=== PATIENT | male | born 1930 | race African-American/Black ===

== ENCOUNTER 2017-08-27 14:38 | Inpatient (IN) | payer OTHER ==
[~2017-08-27] VITALS: Ht 180.3 cm; Wt 81.6 kg
[~2017-08-27 14:38] MED LIST: ASPI-986 PO; CLOT10TR2 MM; COLC0.6T66 PO; DOCU240C26 PO; RIVA1TAB PO
[2017-08-27] MEDS ORDERED: SODIUM CHLORIDE 0.9% 500 ML IV ONE (16:00)
[2017-08-27 16:34] LABS: BASOPHILS % 0.9 % (0.0-2.0); EOSINOPHILS % 1.6 % (0.0-5.0); HEMATOCRIT. 36.5 % (42.0-52.0); HEMOGLOBIN. 12.4 g/dL (14.0-18.0); LYMPHOCYTES % 14.1 % (20.0-50.0); MEAN CORPUSCULAR HEMOGLOBIN 37.9 pg (28.0-32.0); MEAN CORPUSCULAR VOLUME 111.5 fL (80.0-94.0); MEAN PLATELET VOLUME 7.4 fl (7.4-10.4); MONOCYTES % 7.3 % (2.0-8.0); NEUTROPHILS % 76.1 % (40.0-76.0); PLATELET 147 x1000/uL (130-400); RED BLOOD CELL COUNT 3.27 mill/uL (4.7-6.1)
[2017-08-27 16:39] LABS: INR 1.6; PROTHROMBIN TIME 17.2 sec (9.4-11.6)
[2017-08-27 16:43] LABS: CLARITY URINE CLEAR (CLEAR); COLOR URINE YELLOW (YELLOW); GLUCOSE URINE NEGATIVE (NEGATIVE); KETONES URINE NEGATIVE (NEGATIVE); LEUKOCYTE ESTERASE URINE NEGATIVE (NEGATIVE); NITRITE URINE NEGATIVE (NEGATIVE); OCCULT BLOOD URINE NEGATIVE (NEGATIVE); PH URINE 5.5 (4.5-8.0); PROTEIN URINE NEGATIVE (NEGATIVE); SPECIFIC GRAVITY URINE 1.012 (1.005-1.030); UROBILINOGEN URINE 0.2 E.U./dL (0.2-1.0)
[2017-08-27 16:48] LABS: CARBON DIOXIDE 25 mEq/L (21-32); CHLORIDE 111 mEq/L (98-107)
[2017-08-27 16:49] LABS: TROPONIN I 0.02 ng/mL (0.00-0.04)
[2017-08-27 16:57] LABS: *AMPHETAMINES SCREEN URINE NEGATIVE (NEGATIVE); *BARBITURATES SCREEN URINE NEGATIVE (NEGATIVE); *BENZODIAZEPINES SCREEN URINE NEGATIVE (NEGATIVE); *COCAINE SCREEN URINE NEGATIVE (NEGATIVE); CANNABINOID URINE SCREEN NEGATIVE (NEGATIVE); METHADONE URINE SCREEN NEGATIVE (NEGATIVE); OPIATES URINE SCREEN NEGATIVE (NEGATIVE); PHENCYCLIDINE URINE SCREEN NEGATIVE (NEGATIVE)
[2017-08-27 17:01] LABS: PLATELET ESTIMATE NORMAL
[2017-08-27 20:25] VITALS: BP 110/63
[2017-08-27 22:00] VITALS: BP 110/63
[2017-08-28] VITALS (7 sets, daily range): BP systolic 91–127; BP diastolic 43–81
[2017-08-28] MEDS ORDERED: TAMS-11 PO (00:49)
[2017-08-28] MEDS ORDERED: POTA99TA25 PO (00:49)
[2017-08-28] MEDS ORDERED: PROT40 PO (00:49)
[2017-08-28] MEDS ORDERED: LEVO50TA8 PO (00:49)
[2017-08-28] MEDS ORDERED: DONE10TA11 PO (00:49)
[2017-08-28] MEDS ORDERED: PARO10TA87 PO (00:49)
[2017-08-28] MEDS ORDERED: COR3 PO (00:49)
[2017-08-28] MEDS ORDERED: GABA300S PO (00:49)
[2017-08-28] MEDS ORDERED: MULT-382 PO (00:49)
[2017-08-28] MEDS ORDERED: IRON18TA PO (00:49)
[2017-08-28] MEDS ORDERED: MAGN400T26 PO (00:49)
[2017-08-28] MEDS ORDERED: ALLO100T PO (00:49)
[2017-08-28] MEDS ORDERED: FURO80TA87 PO (00:49)
[2017-08-28] MEDS ORDERED: XAR15 PO (00:49)
[2017-08-28] MEDS ORDERED: AMIO100T4 PO (01:13)
[2017-08-28] MEDS ORDERED: LORAZEPAM 0.5MG TABLET PO PRN (01:15)
[2017-08-28] MEDS: OMEPRAZOLE 20MG CAPSULE EXTENDED RELEASE PO SCH (06:41)
[2017-08-28] MEDS: LEVOTHYROXINE SODIUM 50MCG TABLET PO SCH (06:41)
[2017-08-28 06:46] LABS: HEMATOCRIT 33.7 % (42.0-52.0); HEMOGLOBIN 11.5 g/dL (14.0-18.0); MEAN CORPUSCULAR HEMOGLOBIN 37.8 pg (28.0-32.0); MEAN CORPUSCULAR VOLUME 111.2 fL (80.0-94.0); PLATELET 139 x1000/uL (130-400); RED BLOOD CELL COUNT 3.03 mill/uL (4.7-6.1); RED CELL DISTRIBUTION WIDTH 14.7 % (11.6-14.6)
[2017-08-28] MEDS: CARVEDILOL 3.125 MG TABLET PO SCH ×2 (09:00→20:23)
[2017-08-28] MEDS ORDERED: LISINOPRIL 10MG TABLET PO SCH (09:00)
[2017-08-28] MEDS: DONEPEZIL HCL 10MG TABLET PO SCH (09:23)
[2017-08-28] MEDS: PAROXETINE HCL 20MG TABLET PO SCH (09:23)
[2017-08-28] MEDS: GABAPENTIN 300MG CAPSULE PO SCH (09:23)
[2017-08-28] MEDS: FUROSEMIDE 40MG/4ML VIAL IVP SCH ×3 (09:23→17:05)
[2017-08-28] MEDS: TAMSULOSIN HCL 0.4MG SR CAPSULE PO SCH (09:24)
[2017-08-28] MEDS ORDERED: POTASSIUM CHLORIDE 20MEQ TABLET SR PO NR (15:00)
[2017-08-28] MEDS: ENOXAPARIN 80MG/0.8ML SYR SUBCUT SCH (17:03)
[2017-08-29] VITALS: BP 102/75
[2017-08-29 04:30] VITALS: BP 106/70
[2017-08-29] MEDS: LEVOTHYROXINE SODIUM 50MCG TABLET PO SCH (06:37)
[2017-08-29] MEDS: OMEPRAZOLE 20MG CAPSULE EXTENDED RELEASE PO SCH (06:37)
[2017-08-29 06:41] LABS: BASOPHILS % 0.8 % (0.0-2.0); HEMATOCRIT. 34.6 % (42.0-52.0); HEMOGLOBIN. 11.7 g/dL (14.0-18.0); LYMPHOCYTES % 22.8 % (20.0-50.0); MEAN CORPUSCULAR VOLUME 109.9 fL (80.0-94.0); MEAN PLATELET VOLUME 7.7 fl (7.4-10.4); MONOCYTES % 9.9 % (2.0-8.0); NEUTROPHILS % 64.5 % (40.0-76.0); PLATELET 138 x1000/uL (130-400); RED BLOOD CELL COUNT 3.15 mill/uL (4.7-6.1); RED CELL DISTRIBUTION WIDTH 15.1 % (11.6-14.6)
[2017-08-29 07:31] VITALS: BP_SYST 106; BP_SYST 114; BP_SYST 115; BP_DIAS 62; BP_DIAS 69; BP_DIAS 86
[2017-08-29 08:52] LABS: CHLORIDE 106 mEq/L (98-107)
[2017-08-29] MEDS: CARVEDILOL 3.125 MG TABLET PO SCH ×2 (09:00→20:59)
[2017-08-29] MEDS: LISINOPRIL 2.5MG TABLET PO SCH (09:00)
[2017-08-29 09:41] LABS: CARBON DIOXIDE 27 mEq/L (21-32); CREATINE KINASE 71 IU/L (39-308); CREATINE KINASE MB FRACTION 1.3 ng/mL (0.5-3.6); HDL CHOLESTEROL 56 mg/dL (40-59); LDL CHOLESTEROL 57 mg/dL (5-100); TROPONIN I 0.03 ng/mL (0.00-0.04)
[2017-08-29] MEDS: POTASSIUM CHLORIDE 20MEQ TABLET SR PO SCH ×2 (10:41→17:35)
[2017-08-29] MEDS: GABAPENTIN 300MG CAPSULE PO SCH (10:42)
[2017-08-29] MEDS: DONEPEZIL HCL 10MG TABLET PO SCH (10:42)
[2017-08-29] MEDS: PAROXETINE HCL 20MG TABLET PO SCH (10:42)
[2017-08-29] MEDS: TAMSULOSIN HCL 0.4MG SR CAPSULE PO SCH (10:42)
[2017-08-29] MEDS: FUROSEMIDE 40MG/4ML VIAL IVP SCH ×2 (10:42→17:26)
[2017-08-29 12:00] VITALS: BP 112/77
[2017-08-29] MEDS ORDERED: POTASSIUM CHLORIDE 20MEQ TABLET SR PO NR (13:45)
[2017-08-29 17:00] VITALS: BP 120/85
[2017-08-29] MEDS: ENOXAPARIN 80MG/0.8ML SYR SUBCUT SCH (17:27)
[2017-08-29] MEDS: ASPIRIN 81MG EC TABLET PO SCH (17:27)
[2017-08-29 20:00] VITALS: BP 107/70
[2017-08-30] VITALS: BP_SYST 109; BP_SYST 114; BP_DIAS 79; BP_DIAS 80
[2017-08-30 04:00] VITALS: BP 101/62
[2017-08-30] MEDS: OMEPRAZOLE 20MG CAPSULE EXTENDED RELEASE PO SCH (06:27)
[2017-08-30] MEDS: LEVOTHYROXINE SODIUM 50MCG TABLET PO SCH (06:27)
[2017-08-30 06:31] LABS: HEMATOCRIT 36.8 % (42.0-52.0); HEMOGLOBIN 12.6 g/dL (14.0-18.0); MEAN CORPUSCULAR HEMOGLOBIN 37.9 pg (28.0-32.0); MEAN CORPUSCULAR VOLUME 110.2 fL (80.0-94.0); PLATELET 144 x1000/uL (130-400); RED BLOOD CELL COUNT 3.34 mill/uL (4.7-6.1); RED CELL DISTRIBUTION WIDTH 14.9 % (11.6-14.6)
[2017-08-30 08:00] VITALS: BP 131/74
[2017-08-30] MEDS: CARVEDILOL 3.125 MG TABLET PO SCH (08:39)
[2017-08-30] MEDS: LISINOPRIL 2.5MG TABLET PO SCH (08:40)
[2017-08-30] MEDS: ASPIRIN 81MG EC TABLET PO SCH (08:57)
[2017-08-30] MEDS: GABAPENTIN 300MG CAPSULE PO SCH (08:57)
[2017-08-30] MEDS: POTASSIUM CHLORIDE 20MEQ TABLET SR PO SCH (08:58)
[2017-08-30] MEDS: DONEPEZIL HCL 10MG TABLET PO SCH (08:58)
[2017-08-30] MEDS: PAROXETINE HCL 20MG TABLET PO SCH (08:58)
[2017-08-30] MEDS: FUROSEMIDE 40MG/4ML VIAL IVP SCH (08:59)
[2017-08-30] MEDS: TAMSULOSIN HCL 0.4MG SR CAPSULE PO SCH (09:01)
[2017-08-30 12:00] VITALS: BP 112/68
[2017-08-30 16:00] VITALS: BP 108/65
[2017-08-30] MEDS: ENOXAPARIN 80MG/0.8ML SYR SUBCUT SCH (16:00)
== END 2017-08-30 17:20 | disposition home or self-care (01) | DRG 291 ==
LOC: ER 14:56 → 6WST 17:52 → ENRESERV 18:13 → 6WST 08-29 17:40
PROVIDERS: ADMIT Internal Medicine; ATTEND Internal Medicine
DX: I13.0 Hypertensive heart and chronic kidney disease with heart failure and stage 1 through stage 4 chronic kidney disease, or unspecified chronic kidney disease (principal); I50.43 Acute on chronic combined systolic (congestive) and diastolic (congestive) heart failure; N17.9 Acute kidney failure, unspecified; E86.0 Dehydration; D68.9 Coagulation defect, unspecified; I48.2 Chronic atrial fibrillation; D63.1 Anemia in chronic kidney disease; I42.0 Dilated cardiomyopathy; E03.9 Hypothyroidism, unspecified; E87.6 Hypokalemia; G30.9 Alzheimer's disease, unspecified; F02.80 Dementia in other diseases classified elsewhere, unspecified severity, without behavioral disturbance, psychotic disturbance, mood disturbance, and anxiety; I25.10 Atherosclerotic heart disease of native coronary artery without angina pectoris; N18.9 Chronic kidney disease, unspecified; N40.0 Benign prostatic hyperplasia without lower urinary tract symptoms; I25.2 Old myocardial infarction; Z79.01 Long term (current) use of anticoagulants; Z95.5 Presence of coronary angioplasty implant and graft; Z95.810 Presence of automatic (implantable) cardiac defibrillator; Z88.0 Allergy status to penicillin; Z79.899 Other long term (current) drug therapy
CPT/HCPCS: 36415; 70450; 71010; 76770; 80048; 80053; 80061; 80305; 81003; 82550; 82553; 83036; 83735; 83880; 84443; 84484; 85025; 85027; 85379; 85610; 93005; 93306; 93970; 96360; 96361; 97162; 99285; J1650; J1940; J7030; J7040

== ENCOUNTER 2018-08-08 14:06 | Inpatient (IN) | payer OTHER, MEDICAID ==
[~2018-08-08] VITALS: Ht 167.6 cm; Wt 95.3 kg
[~2018-08-08 14:06] MED LIST changes: +ALLO100T PO; +AMIO100T4 PO; +COR3 PO; +DONE10TA11 PO; +FURO80TA87 PO; +GABA300S PO; +IRON18TA PO; +LEVO50TA8 PO; +MAGN400T26 PO; +MULT-382 PO; +PARO10TA87 PO; +POTA99TA25 PO; +PROT40 PO; +TAMS-11 PO; +XAR15 PO
[2018-08-08] MEDS ORDERED: SODIUM CHLORIDE 0.9% 500 ML IV ONE (15:05)
[2018-08-08 15:45] LABS: BG BASE EXCESS -1.8 mmol/L (-2.0-2.0); BG CARBOXYHEMOGLOBIN 1.6 % (0.5-1.5); BG DEOXYHEMOGLOBIN 5.3 % (0.0-5.0); BG FRACTION INSPIRED OXYGEN 21; BG HCO3 ACT 20.9 mmol/L (22.0-26.0); BG METHEMOGLOBIN 0.3 % (0.0-1.5); BG OXYGEN SATURATION 94.6 % (92.0-98.5); BG OXYHEMOGLOBIN 92.8 % (94.0-97.0); BG PCO2 28.7 mmHg (35.0-45.0); BG PO2 70.6 mmHg (75.0-100.0); BG SAMPLE SITE RIGHT RADIAL; BG TOTAL HEMOGLOBIN 10.3 g/dL (12.0-18.0); BG VENT MODE ROOM AIR
[2018-08-08 16:43] LABS: HEMATOCRIT. 29.1 % (42.0-52.0); HEMOGLOBIN. 9.2 g/dL (14.0-18.0); INR 1.4; MEAN CORPUSCULAR HEMOGLOBIN 35.6 pg (28.0-32.0); MEAN CORPUSCULAR VOLUME 113.1 fL (80.0-94.0); MEAN PLATELET VOLUME 8.5 fl (7.4-10.4); PLATELET 90 x1000/uL (130-400); PROTHROMBIN TIME 14.4 sec (9.1-11.1); RED BLOOD CELL COUNT 2.57 mill/uL (4.7-6.1); RED CELL DISTRIBUTION WIDTH 22.1 % (11.6-14.6)
[2018-08-08 16:47] LABS: CHLORIDE 107 mEq/L (98-107)
[2018-08-08 17:10] LABS: PLATELET ESTIMATE DECREASED
[2018-08-08] MEDS ORDERED: LEVOFLOXACIN 750MG PREMIX 150 ML IV ONE (18:15)
[2018-08-08 19:00] LABS: CLARITY URINE CLEAR (CLEAR); COLOR URINE DARK YELLOW (YELLOW); KETONES URINE TRACE (NEGATIVE); LEUKOCYTE ESTERASE URINE 1+ (NEGATIVE); NITRITE URINE NEGATIVE (NEGATIVE); OCCULT BLOOD URINE NEGATIVE (NEGATIVE); PROTEIN URINE 1+ (NEGATIVE)
[2018-08-08] MEDS ORDERED: VANCOMYCIN 1 G PREMIX 200 ML IV SCH (19:00)
[2018-08-08] MEDS ORDERED: ASPIRIN 300MG SUPP PR ONE (19:45)
[2018-08-08] MEDS ORDERED: SODIUM CHLORIDE 0.9% 250 ML IV ONE (21:16)
[2018-08-09] VITALS (7 sets, daily range): BP systolic 92–141; BP diastolic 66–102
[2018-08-09] MEDS ORDERED: LEVOFLOXACIN 500MG PREMIX 100 ML IV SCH ×2 (04:45→20:00)
[2018-08-09] MEDS ORDERED: AMIODARONE HCL 200 MG TABLET PO SCH ×2 (05:00→11:00)
[2018-08-09] MEDS: PANTOPRAZOLE 40MG DR TABLET PO SCH (06:10)
[2018-08-09 08:38] LABS: HEMOGLOBIN 10.3 g/dL (14.0-18.0); MEAN CORPUSCULAR HEMOGLOBIN 36.1 pg (28.0-32.0); MEAN CORPUSCULAR VOLUME 115.3 fL (80.0-94.0); PLATELET 89 x1000/uL (130-400); RED BLOOD CELL COUNT 2.87 mill/uL (4.7-6.1); RED CELL DISTRIBUTION WIDTH 22.1 % (11.6-14.6)
[2018-08-09 08:45] LABS: CREATINE KINASE MB FRACTION 1.5 ng/mL (0.5-3.6)
[2018-08-09] MEDS: ALLOPURINOL 100 MG TABLET PO SCH (08:51)
[2018-08-09] MEDS: PAROXETINE HCL 10MG TABLET PO SCH (08:51)
[2018-08-09] MEDS: LEVOTHYROXINE SODIUM 50MCG TABLET PO SCH (08:51)
[2018-08-09] MEDS: TAMSULOSIN HCL 0.4MG SR CAPSULE PO SCH (08:52)
[2018-08-09] MEDS: GABAPENTIN 300MG CAPSULE PO SCH (08:52)
[2018-08-09] MEDS ORDERED: MEDICATION NOT ON FORMULARY EA (Pantoprazole Sodium (Protonix) 40 MG) PO SCH (09:00)
[2018-08-09] MEDS: CARVEDILOL 3.125 MG TABLET PO SCH (09:00)
[2018-08-09 11:36] LABS: AMMONIA 31 uMol/L (<32)
[2018-08-09] MEDS: RIVAROXABAN 15 MG TABLET PO SCH (17:45)
[2018-08-09] MEDS ORDERED: VANCOMYCIN 1 G PREMIX 200 ML IV NR (20:00)
[2018-08-09] MEDS: ACETAMINOPHEN 650MG/20.3ML UDC PO PRN (22:21)
[2018-08-10] VITALS: BP 92/66
[2018-08-10 04:00] VITALS: BP 96/68
[2018-08-10 06:15] LABS: HEMATOCRIT. 28.3 % (42.0-52.0); HEMOGLOBIN. 9.3 g/dL (14.0-18.0); MEAN CORPUSCULAR HEMOGLOBIN 36.9 pg (28.0-32.0); MEAN CORPUSCULAR VOLUME 112.5 fL (80.0-94.0); MEAN PLATELET VOLUME 8.1 fl (7.4-10.4); PLATELET 80 x1000/uL (130-400); RED BLOOD CELL COUNT 2.52 mill/uL (4.7-6.1); RED CELL DISTRIBUTION WIDTH 21.6 % (11.6-14.6)
[2018-08-10] MEDS: PANTOPRAZOLE 40MG DR TABLET PO SCH (06:27)
[2018-08-10 07:15] LABS: PLATELET ESTIMATE DECREASED
[2018-08-10 07:55] VITALS: BP 101/69
[2018-08-10] MEDS: PAROXETINE HCL 10MG TABLET PO SCH (08:38)
[2018-08-10] MEDS: GABAPENTIN 300MG CAPSULE PO SCH (08:38)
[2018-08-10] MEDS: AMIODARONE HCL 200 MG TABLET PO SCH (08:38)
[2018-08-10] MEDS: ALLOPURINOL 100 MG TABLET PO SCH (08:38)
[2018-08-10] MEDS: LEVOTHYROXINE SODIUM 50MCG TABLET PO SCH (08:38)
[2018-08-10] MEDS: CARVEDILOL 3.125 MG TABLET PO SCH (09:00)
[2018-08-10] MEDS: TAMSULOSIN HCL 0.4MG SR CAPSULE PO SCH (09:00)
[2018-08-10] MEDS ORDERED: LIDOCAINE HCL 1% 20ML VIAL (Pyxis) INJ ONE (10:53)
[2018-08-10] MEDS ORDERED: SODIUM BICARBONATE 4% (2.4MEQ) 5ML VIAL IV ONE (10:53)
[2018-08-10 12:00] VITALS: BP 90/63
[2018-08-10 16:00] VITALS: BP 91/66
[2018-08-10] MEDS: RIVAROXABAN 15 MG TABLET PO SCH (17:02)
[2018-08-10] MEDS ORDERED: LEVOFLOXACIN 250MG PREMIX 50 ML IV SCH (18:00)
[2018-08-10 20:00] VITALS: BP 96/62
[2018-08-11] VITALS: BP 98/52
[2018-08-11] MEDS: ACETAMINOPHEN 650MG/20.3ML UDC PO PRN ×2 (03:45→16:58)
[2018-08-11 04:00] VITALS: BP 98/69
[2018-08-11] MEDS: PANTOPRAZOLE 40MG DR TABLET PO SCH (06:11)
[2018-08-11 06:45] LABS: BASOPHILS % 0.4 % (0.0-2.0); EOSINOPHILS % 0.3 % (0.0-5.0); HEMATOCRIT. 26.8 % (42.0-52.0); HEMOGLOBIN. 8.7 g/dL (14.0-18.0); MEAN CORPUSCULAR HEMOGLOBIN 36.5 pg (28.0-32.0); MEAN CORPUSCULAR VOLUME 112.2 fL (80.0-94.0); MEAN PLATELET VOLUME 8.2 fl (7.4-10.4); MONOCYTES % 10.5 % (2.0-8.0); NEUTROPHILS % 79.8 % (40.0-76.0); PLATELET 83 x1000/uL (130-400); RED BLOOD CELL COUNT 2.39 mill/uL (4.7-6.1)
[2018-08-11 08:00] VITALS: BP 101/73
[2018-08-11] MEDS: CARVEDILOL 3.125 MG TABLET PO SCH (08:03)
[2018-08-11] MEDS: TAMSULOSIN HCL 0.4MG SR CAPSULE PO SCH (09:00)
[2018-08-11] MEDS: AMIODARONE HCL 200 MG TABLET PO SCH (09:22)
[2018-08-11] MEDS: ALLOPURINOL 100 MG TABLET PO SCH (09:22)
[2018-08-11] MEDS: PAROXETINE HCL 10MG TABLET PO SCH (09:22)
[2018-08-11] MEDS: GABAPENTIN 300MG CAPSULE PO SCH (09:25)
[2018-08-11] MEDS: LEVOTHYROXINE SODIUM 50MCG TABLET PO SCH (09:25)
[2018-08-11 12:00] VITALS: BP 91/62
[2018-08-11] MEDS ORDERED: VANCOMYCIN 1 G PREMIX 200 ML IV SCH (14:00)
[2018-08-11 16:20] VITALS: BP 94/63
[2018-08-11] MEDS: APIXABAN 2.5 MG TABLET PO SCH ×2 (17:00→17:50)
[2018-08-11 20:00] VITALS: BP 90/65
[2018-08-12] VITALS: BP 100/60
[2018-08-12 04:00] VITALS: BP 94/64
[2018-08-12 06:17] LABS: BASOPHILS % 0.6 % (0.0-2.0); EOSINOPHILS % 0.5 % (0.0-5.0); HEMATOCRIT. 28.1 % (42.0-52.0); LYMPHOCYTES % 11.4 % (20.0-50.0); MEAN CORPUSCULAR HEMOGLOBIN 35.6 pg (28.0-32.0); MEAN CORPUSCULAR VOLUME 111.5 fL (80.0-94.0); MEAN PLATELET VOLUME 7.9 fl (7.4-10.4); MONOCYTES % 10.1 % (2.0-8.0); NEUTROPHILS % 77.4 % (40.0-76.0); PLATELET 95 x1000/uL (130-400); RED BLOOD CELL COUNT 2.52 mill/uL (4.7-6.1); RED CELL DISTRIBUTION WIDTH 20.9 % (11.6-14.6)
[2018-08-12] MEDS: PANTOPRAZOLE 40MG DR TABLET PO SCH (06:46)
[2018-08-12 08:00] VITALS: BP 106/77
[2018-08-12] MEDS: TAMSULOSIN HCL 0.4MG SR CAPSULE PO SCH (08:55)
[2018-08-12] MEDS: PAROXETINE HCL 10MG TABLET PO SCH (08:56)
[2018-08-12] MEDS: ALLOPURINOL 100 MG TABLET PO SCH (08:56)
[2018-08-12] MEDS: GABAPENTIN 300MG CAPSULE PO SCH (08:56)
[2018-08-12] MEDS: CARVEDILOL 3.125 MG TABLET PO SCH (08:56)
[2018-08-12] MEDS: LEVOTHYROXINE SODIUM 50MCG TABLET PO SCH (08:56)
[2018-08-12] MEDS: AMIODARONE HCL 200 MG TABLET PO SCH (08:56)
[2018-08-12] MEDS: APIXABAN 2.5 MG TABLET PO SCH ×2 (08:56→17:41)
[2018-08-12] MEDS: HYDROCODONE/ACETAMINOPHEN 5/325MG TABLET PO PRN (08:57)
[2018-08-12 12:00] VITALS: BP 99/72
[2018-08-12 16:00] VITALS: BP 91/62
[2018-08-12 20:00] VITALS: BP 91/58
[2018-08-13] VITALS: BP 91/66
[2018-08-13 04:00] VITALS: BP 99/67
[2018-08-13] MEDS: PANTOPRAZOLE 40MG DR TABLET PO SCH (06:53)
[2018-08-13 08:30] VITALS: BP 101/69
[2018-08-13] MEDS: AMIODARONE HCL 200 MG TABLET PO SCH (08:48)
[2018-08-13] MEDS: LEVOTHYROXINE SODIUM 50MCG TABLET PO SCH (08:48)
[2018-08-13] MEDS: ALLOPURINOL 100 MG TABLET PO SCH (08:48)
[2018-08-13] MEDS: TAMSULOSIN HCL 0.4MG SR CAPSULE PO SCH (08:48)
[2018-08-13] MEDS: PAROXETINE HCL 10MG TABLET PO SCH (08:48)
[2018-08-13] MEDS: APIXABAN 2.5 MG TABLET PO SCH ×2 (08:48→18:10)
[2018-08-13] MEDS: GABAPENTIN 300MG CAPSULE PO SCH (08:48)
[2018-08-13] MEDS: CARVEDILOL 3.125 MG TABLET PO SCH (08:51)
[2018-08-13] MEDS ORDERED: VANCOMYCIN 1250MG in DEXTROSE 5% WATER 250ML IV NR (11:00)
[2018-08-13 12:00] VITALS: BP 108/72
[2018-08-13 13:41] LABS: BASOPHILS % 0.7 % (0.0-2.0); EOSINOPHILS % 0.3 % (0.0-5.0); HEMATOCRIT. 30.1 % (42.0-52.0); HEMOGLOBIN. 9.4 g/dL (14.0-18.0); LYMPHOCYTES % 14.6 % (20.0-50.0); MEAN CORPUSCULAR HEMOGLOBIN 35.4 pg (28.0-32.0); MEAN CORPUSCULAR VOLUME 112.7 fL (80.0-94.0); MEAN PLATELET VOLUME 8.4 fl (7.4-10.4); MONOCYTES % 9.9 % (2.0-8.0); NEUTROPHILS % 74.5 % (40.0-76.0); PLATELET 112 x1000/uL (130-400); RED BLOOD CELL COUNT 2.67 mill/uL (4.7-6.1); RED CELL DISTRIBUTION WIDTH 20.6 % (11.6-14.6)
[2018-08-13 17:35] VITALS: BP 99/67
[2018-08-13 20:00] VITALS: BP 95/63
[2018-08-14] VITALS: BP 121/52
[2018-08-14 04:00] VITALS: BP 93/67
[2018-08-14] MEDS: PANTOPRAZOLE 40MG DR TABLET PO SCH (06:17)
[2018-08-14 06:35] LABS: INR 1.3; PARTIAL THROMBOPLASTIN TIME 37.9 sec (23.4-31.0); PROTHROMBIN TIME 13.1 sec (9.1-11.1)
[2018-08-14 06:42] LABS: BASOPHILS % 0.3 % (0.0-2.0); EOSINOPHILS % 0.5 % (0.0-5.0); HEMATOCRIT. 28.8 % (42.0-52.0); HEMOGLOBIN. 9.2 g/dL (14.0-18.0); LYMPHOCYTES % 10.3 % (20.0-50.0); MEAN CORPUSCULAR HEMOGLOBIN 34.9 pg (28.0-32.0); MEAN CORPUSCULAR VOLUME 109.1 fL (80.0-94.0); MEAN PLATELET VOLUME 7.6 fl (7.4-10.4); MONOCYTES % 10.7 % (2.0-8.0); NEUTROPHILS % 78.2 % (40.0-76.0); PLATELET 130 x1000/uL (130-400); RED BLOOD CELL COUNT 2.64 mill/uL (4.7-6.1); RED CELL DISTRIBUTION WIDTH 20.2 % (11.6-14.6)
[2018-08-14 08:00] VITALS: BP 91/61
[2018-08-14] MEDS: GABAPENTIN 300MG CAPSULE PO SCH (08:37)
[2018-08-14] MEDS: LEVOTHYROXINE SODIUM 50MCG TABLET PO SCH (08:37)
[2018-08-14] MEDS: AMIODARONE HCL 200 MG TABLET PO SCH (08:37)
[2018-08-14] MEDS: ALLOPURINOL 100 MG TABLET PO SCH (08:37)
[2018-08-14] MEDS: APIXABAN 2.5 MG TABLET PO SCH (08:38)
[2018-08-14] MEDS: TAMSULOSIN HCL 0.4MG SR CAPSULE PO SCH (08:38)
[2018-08-14] MEDS: PAROXETINE HCL 10MG TABLET PO SCH (08:38)
[2018-08-14] MEDS: CARVEDILOL 3.125 MG TABLET PO SCH (08:41)
[2018-08-14 12:00] VITALS: BP 113/66
[2018-08-14 16:00] VITALS: BP 136/69
[2018-08-14 20:00] VITALS: BP 91/67
[2018-08-15] VITALS: BP 94/65
[2018-08-15 04:00] VITALS: BP 93/67
[2018-08-15] MEDS: PANTOPRAZOLE 40MG DR TABLET PO SCH (06:15)
[2018-08-15 08:00] VITALS: BP 95/63
[2018-08-15] MEDS: CARVEDILOL 3.125 MG TABLET PO SCH (08:45)
[2018-08-15] MEDS: TAMSULOSIN HCL 0.4MG SR CAPSULE PO SCH (08:46)
[2018-08-15] MEDS: LEVOTHYROXINE SODIUM 50MCG TABLET PO SCH (08:51)
[2018-08-15] MEDS: ALLOPURINOL 100 MG TABLET PO SCH (08:51)
[2018-08-15] MEDS: PAROXETINE HCL 10MG TABLET PO SCH (08:51)
[2018-08-15] MEDS: GABAPENTIN 300MG CAPSULE PO SCH (08:51)
[2018-08-15] MEDS: AMIODARONE HCL 200 MG TABLET PO SCH (08:52)
[2018-08-15 12:15] VITALS: BP 105/60
[2018-08-15] MEDS ORDERED: VANCOMYCIN 1 G PREMIX 200 ML IV SCH (14:00)
[2018-08-15 16:25] VITALS: BP 104/57
[2018-08-15] MEDS: HYDROCODONE/ACETAMINOPHEN 5/325MG TABLET PO PRN (16:30)
[2018-08-15 20:00] VITALS: BP 98/64
[2018-08-16] VITALS (16 sets, daily range): BP systolic 95–111; BP diastolic 58–80
[2018-08-16] MEDS: PANTOPRAZOLE 40MG DR TABLET PO SCH (06:09)
[2018-08-16 06:59] LABS: BASOPHILS % 0.3 % (0.0-2.0); EOSINOPHILS % 0.8 % (0.0-5.0); HEMATOCRIT. 27.4 % (42.0-52.0); HEMOGLOBIN. 8.8 g/dL (14.0-18.0); LYMPHOCYTES % 14.2 % (20.0-50.0); MEAN CORPUSCULAR HEMOGLOBIN 34.8 pg (28.0-32.0); MEAN CORPUSCULAR VOLUME 108.1 fL (80.0-94.0); MEAN PLATELET VOLUME 7.2 fl (7.4-10.4); MONOCYTES % 8.4 % (2.0-8.0); NEUTROPHILS % 76.3 % (40.0-76.0); PLATELET 154 x1000/uL (130-400); RED BLOOD CELL COUNT 2.54 mill/uL (4.7-6.1); RED CELL DISTRIBUTION WIDTH 20.2 % (11.6-14.6)
[2018-08-16] MEDS ORDERED: LIDOCAINE HCL 1% 20ML VIAL (Pyxis) INJ ONE (08:45)
[2018-08-16] MEDS ORDERED: FENTANYL CITRATE/PF 50MCG/ML 2ML VIAL IV ONE (08:45)
[2018-08-16] MEDS ORDERED: SODIUM BICARBONATE 4% (2.4MEQ) 5ML VIAL IV ONE (08:45)
[2018-08-16] MEDS ORDERED: FENTANYL CITRATE/PF 50MCG/ML 2ML VIAL ONE (08:52)
[2018-08-16] MEDS ORDERED: LIDOCAINE HCL/EPINEPHRINE 1%-EPI 1:100,000 20 ML VIAL ONE (08:53)
[2018-08-16] MEDS: CARVEDILOL 3.125 MG TABLET PO SCH (09:00)
[2018-08-16] MEDS: PAROXETINE HCL 10MG TABLET PO SCH (09:55)
[2018-08-16] MEDS: AMIODARONE HCL 200 MG TABLET PO SCH (09:55)
[2018-08-16] MEDS: GABAPENTIN 300MG CAPSULE PO SCH (09:55)
[2018-08-16] MEDS: ALLOPURINOL 100 MG TABLET PO SCH (09:55)
[2018-08-16] MEDS: LEVOTHYROXINE SODIUM 50MCG TABLET PO SCH (09:55)
[2018-08-16] MEDS: TAMSULOSIN HCL 0.4MG SR CAPSULE PO SCH (09:56)
[2018-08-16] MEDS ORDERED: VANCOMYCIN 1250MG in DEXTROSE 5% WATER 250ML IV SCH (14:00)
[2018-08-17] VITALS: BP 107/73
[2018-08-17] MEDS: ACETAMINOPHEN 650MG/20.3ML UDC PO PRN (01:02)
[2018-08-17 04:00] VITALS: BP 106/55
[2018-08-17] MEDS: PANTOPRAZOLE 40MG DR TABLET PO SCH (05:48)
[2018-08-17 07:13] LABS: EOSINOPHILS % 0.8 % (0.0-5.0); HEMATOCRIT. 25.5 % (42.0-52.0); HEMOGLOBIN. 8.3 g/dL (14.0-18.0); LYMPHOCYTES % 10.2 % (20.0-50.0); MEAN CORPUSCULAR HEMOGLOBIN 34.7 pg (28.0-32.0); MEAN CORPUSCULAR VOLUME 106.3 fL (80.0-94.0); MEAN PLATELET VOLUME 7.1 fl (7.4-10.4); PLATELET 164 x1000/uL (130-400); RED CELL DISTRIBUTION WIDTH 20.3 % (11.6-14.6)
[2018-08-17 08:00] VITALS: BP 98/67
[2018-08-17] MEDS: ALLOPURINOL 100 MG TABLET PO SCH (08:39)
[2018-08-17] MEDS: AMIODARONE HCL 200 MG TABLET PO SCH (08:39)
[2018-08-17] MEDS: GABAPENTIN 300MG CAPSULE PO SCH (08:39)
[2018-08-17] MEDS: TAMSULOSIN HCL 0.4MG SR CAPSULE PO SCH (08:39)
[2018-08-17] MEDS: PAROXETINE HCL 10MG TABLET PO SCH (08:39)
[2018-08-17] MEDS: CARVEDILOL 3.125 MG TABLET PO SCH (08:40)
[2018-08-17] MEDS: LEVOTHYROXINE SODIUM 50MCG TABLET PO SCH (08:44)
[2018-08-17 12:00] VITALS: BP 95/63
[2018-08-17] MEDS: HYDROCODONE/ACETAMINOPHEN 5/325MG TABLET PO PRN (13:42)
[2018-08-17 16:00] VITALS: BP 94/68
[2018-08-17 20:00] VITALS: BP 98/55
[2018-08-18] VITALS: BP 96/59
[2018-08-18 04:00] VITALS: BP 104/73
[2018-08-18 07:30] VITALS: BP 103/66
[2018-08-18 08:04] LABS: BASOPHILS % 0.8 % (0.0-2.0); EOSINOPHILS % 1.1 % (0.0-5.0); MEAN CORPUSCULAR HEMOGLOBIN 34.3 pg (28.0-32.0); MEAN CORPUSCULAR VOLUME 106.9 fL (80.0-94.0); MEAN PLATELET VOLUME 6.8 fl (7.4-10.4); NEUTROPHILS % 69.1 % (40.0-76.0); PLATELET 192 x1000/uL (130-400); RED BLOOD CELL COUNT 2.62 mill/uL (4.7-6.1); RED CELL DISTRIBUTION WIDTH 20.5 % (11.6-14.6)
[2018-08-18] MEDS: CARVEDILOL 3.125 MG TABLET PO SCH (08:35)
[2018-08-18] MEDS: AMIODARONE HCL 200 MG TABLET PO SCH (09:00)
[2018-08-18] MEDS: LEVOTHYROXINE SODIUM 50MCG TABLET PO SCH (09:00)
[2018-08-18] MEDS: PAROXETINE HCL 10MG TABLET PO SCH (09:00)
[2018-08-18] MEDS: TAMSULOSIN HCL 0.4MG SR CAPSULE PO SCH (09:01)
[2018-08-18] MEDS: ALLOPURINOL 100 MG TABLET PO SCH (09:01)
[2018-08-18] MEDS: PANTOPRAZOLE 40MG DR TABLET PO SCH (09:01)
[2018-08-18] MEDS: APIXABAN 2.5 MG TABLET PO SCH ×2 (09:01→17:57)
[2018-08-18] MEDS: GABAPENTIN 300MG CAPSULE PO SCH (09:01)
[2018-08-18 12:00] VITALS: BP 102/68
[2018-08-18] MEDS: HYDROCODONE/ACETAMINOPHEN 5/325MG TABLET PO PRN (12:35)
[2018-08-18 16:00] VITALS: BP 103/71
[2018-08-18 20:00] VITALS: BP 109/69
[2018-08-18] MEDS ORDERED: VANCOMYCIN 1250MG in DEXTROSE 5% WATER 250ML IV NR (22:00)
[2018-08-19] VITALS: BP 121/83
[2018-08-19 04:00] VITALS: BP 101/67
[2018-08-19] MEDS: PANTOPRAZOLE 40MG DR TABLET PO SCH (06:30)
[2018-08-19 08:00] VITALS: BP 102/68
[2018-08-19] MEDS: CARVEDILOL 3.125 MG TABLET PO SCH (09:00)
[2018-08-19] MEDS: AMIODARONE HCL 200 MG TABLET PO SCH (09:40)
[2018-08-19] MEDS: TAMSULOSIN HCL 0.4MG SR CAPSULE PO SCH (09:41)
[2018-08-19] MEDS: GABAPENTIN 300MG CAPSULE PO SCH (09:41)
[2018-08-19] MEDS: PAROXETINE HCL 10MG TABLET PO SCH (09:41)
[2018-08-19] MEDS: APIXABAN 2.5 MG TABLET PO SCH ×2 (09:44→17:30)
[2018-08-19] MEDS: ALLOPURINOL 100 MG TABLET PO SCH (09:44)
[2018-08-19] MEDS: LEVOTHYROXINE SODIUM 50MCG TABLET PO SCH (09:44)
[2018-08-19] MEDS: ACETAMINOPHEN 650MG/20.3ML UDC PO PRN ×2 (09:49→17:30)
[2018-08-19 12:00] VITALS: BP 106/49
[2018-08-19 16:00] VITALS: BP 99/59
[2018-08-19 20:00] VITALS: BP 105/67
[2018-08-20] VITALS: BP 103/64
[2018-08-20 04:00] VITALS: BP 97/65
[2018-08-20 07:23] LABS: BASOPHILS % 0.7 % (0.0-2.0); EOSINOPHILS % 1.2 % (0.0-5.0); HEMATOCRIT. 26.7 % (42.0-52.0); HEMOGLOBIN. 8.8 g/dL (14.0-18.0); LYMPHOCYTES % 13.7 % (20.0-50.0); MEAN CORPUSCULAR HEMOGLOBIN 34.2 pg (28.0-32.0); MEAN CORPUSCULAR VOLUME 104.3 fL (80.0-94.0); MEAN PLATELET VOLUME 6.7 fl (7.4-10.4); MONOCYTES % 9.3 % (2.0-8.0); NEUTROPHILS % 75.1 % (40.0-76.0); PLATELET 204 x1000/uL (130-400); RED BLOOD CELL COUNT 2.56 mill/uL (4.7-6.1); RED CELL DISTRIBUTION WIDTH 21.6 % (11.6-14.6)
[2018-08-20 08:00] VITALS: BP 101/76
[2018-08-20] MEDS: CARVEDILOL 3.125 MG TABLET PO SCH (09:00)
[2018-08-20] MEDS: AMIODARONE HCL 200 MG TABLET PO SCH (09:00)
[2018-08-20] MEDS: PAROXETINE HCL 10MG TABLET PO SCH (09:26)
[2018-08-20] MEDS: GABAPENTIN 300MG CAPSULE PO SCH (09:26)
[2018-08-20] MEDS: FAMOTIDINE 20MG TABLET PO SCH (09:27)
[2018-08-20] MEDS: ALLOPURINOL 100 MG TABLET PO SCH (09:27)
[2018-08-20] MEDS: APIXABAN 2.5 MG TABLET PO SCH ×2 (09:27→17:03)
[2018-08-20] MEDS: LEVOTHYROXINE SODIUM 50MCG TABLET PO SCH (09:27)
[2018-08-20] MEDS: TAMSULOSIN HCL 0.4MG SR CAPSULE PO SCH (09:27)
[2018-08-20 12:00] VITALS: BP 103/73
[2018-08-20] MEDS ORDERED: HEPARIN SODIUM 1,000 UNIT/1ML VIAL IV SCH (12:00)
[2018-08-20] MEDS: HYDROCODONE/ACETAMINOPHEN 5/325MG TABLET PO PRN (12:15)
[2018-08-20] MEDS ORDERED: VANCOMYCIN 1 G PREMIX 200 ML IV SCH (15:00)
[2018-08-20 16:00] VITALS: BP 108/76
[2018-08-20 20:00] VITALS: BP 100/69
[2018-08-21] VITALS: BP 108/77
[2018-08-21 04:00] VITALS: BP 101/60
[2018-08-21 08:00] VITALS: BP 109/84
[2018-08-21] MEDS: AMIODARONE HCL 200 MG TABLET PO SCH (09:06)
[2018-08-21] MEDS: GABAPENTIN 300MG CAPSULE PO SCH (09:06)
[2018-08-21] MEDS: ALLOPURINOL 100 MG TABLET PO SCH (09:06)
[2018-08-21] MEDS: TAMSULOSIN HCL 0.4MG SR CAPSULE PO SCH (09:06)
[2018-08-21] MEDS: APIXABAN 2.5 MG TABLET PO SCH ×2 (09:07→16:45)
[2018-08-21] MEDS: CARVEDILOL 3.125 MG TABLET PO SCH (09:07)
[2018-08-21] MEDS: LEVOTHYROXINE SODIUM 50MCG TABLET PO SCH (09:07)
[2018-08-21] MEDS: PAROXETINE HCL 10MG TABLET PO SCH (09:13)
[2018-08-21] MEDS: FAMOTIDINE 20MG TABLET PO SCH (09:13)
[2018-08-21] MEDS: HYDROCODONE/ACETAMINOPHEN 5/325MG TABLET PO PRN (11:57)
[2018-08-21 12:00] VITALS: BP 100/71
[2018-08-21 16:00] VITALS: BP 100/70
[2018-08-21 20:00] VITALS: BP 110/72
[2018-08-22] VITALS (7 sets, daily range): BP systolic 104–138; BP diastolic 57–85
[2018-08-22 07:27] LABS: BASOPHILS % 0.8 % (0.0-2.0); HEMATOCRIT. 27.6 % (42.0-52.0); LYMPHOCYTES % 11.8 % (20.0-50.0); MEAN CORPUSCULAR HEMOGLOBIN 33.9 pg (28.0-32.0); MEAN CORPUSCULAR VOLUME 104.2 fL (80.0-94.0); MONOCYTES % 10.6 % (2.0-8.0); NEUTROPHILS % 75.8 % (40.0-76.0); PLATELET 197 x1000/uL (130-400); RED BLOOD CELL COUNT 2.65 mill/uL (4.7-6.1); RED CELL DISTRIBUTION WIDTH 21.4 % (11.6-14.6)
[2018-08-22] MEDS: CARVEDILOL 3.125 MG TABLET PO SCH (09:00)
[2018-08-22] MEDS: PAROXETINE HCL 10MG TABLET PO SCH (09:14)
[2018-08-22] MEDS: TAMSULOSIN HCL 0.4MG SR CAPSULE PO SCH (09:14)
[2018-08-22] MEDS: FAMOTIDINE 20MG TABLET PO SCH (09:15)
[2018-08-22] MEDS: AMIODARONE HCL 200 MG TABLET PO SCH (09:15)
[2018-08-22] MEDS: GABAPENTIN 300MG CAPSULE PO SCH (09:16)
[2018-08-22] MEDS: LEVOTHYROXINE SODIUM 50MCG TABLET PO SCH (09:16)
[2018-08-22] MEDS: ALLOPURINOL 100 MG TABLET PO SCH (09:16)
[2018-08-22] MEDS ORDERED: HEPARIN SODIUM 1,000 UNIT/1ML VIAL IV NR (14:45)
[2018-08-22] MEDS ORDERED: VANCOMYCIN 1 G PREMIX 200 ML IV SCH (16:00)
[2018-08-23 04:00] VITALS: BP 140/60
[2018-08-23 08:01] VITALS: BP 108/80
[2018-08-23] MEDS: AMIODARONE HCL 200 MG TABLET PO SCH (08:21)
[2018-08-23] MEDS: LEVOTHYROXINE SODIUM 50MCG TABLET PO SCH (08:22)
[2018-08-23] MEDS: PAROXETINE HCL 10MG TABLET PO SCH (08:22)
[2018-08-23] MEDS: ALLOPURINOL 100 MG TABLET PO SCH (08:22)
[2018-08-23] MEDS: TAMSULOSIN HCL 0.4MG SR CAPSULE PO SCH (08:23)
[2018-08-23] MEDS: GABAPENTIN 300MG CAPSULE PO SCH (08:24)
[2018-08-23] MEDS: FAMOTIDINE 20MG TABLET PO SCH (08:24)
[2018-08-23] MEDS: CARVEDILOL 3.125 MG TABLET PO SCH (08:24)
[2018-08-23 09:12] LABS: BASOPHILS % 0.7 % (0.0-2.0); EOSINOPHILS % 0.7 % (0.0-5.0); HEMATOCRIT. 29.4 % (42.0-52.0); HEMOGLOBIN. 9.4 g/dL (14.0-18.0); MEAN CORPUSCULAR VOLUME 103.6 fL (80.0-94.0); MEAN PLATELET VOLUME 7.2 fl (7.4-10.4); MONOCYTES % 9.6 % (2.0-8.0); PLATELET 173 x1000/uL (130-400); RED BLOOD CELL COUNT 2.84 mill/uL (4.7-6.1)
[2018-08-23] MEDS: ACETAMINOPHEN 650MG/20.3ML UDC PO PRN (10:05)
[2018-08-23 12:00] VITALS: BP 106/66
[2018-08-23 12:34] LABS: PLATELET ESTIMATE NORMAL
[2018-08-23 16:00] VITALS: BP 99/75
[2018-08-23 16:01] VITALS: BP 106/66
[2018-08-23] MEDS ORDERED: APIXABAN 2.5 MG TABLET PO SCH (17:00)
== END 2018-08-23 19:50 | DRG 314 ==
LOC: ER 14:06 → 8WST 21:32 → EDBEDREQTM 21:35 → EDBEDREQ 21:35 → ENRESERV 22:09
PROVIDERS: ADMIT Internal Medicine; ATTEND Internal Medicine
PROC: 5A1D70Z Performance of Urinary Filtration, Intermittent, Less than 6 Hours Per Day (ICD-10-PCS; principal; 2018-08-09)
PROC: 0JPT3XZ Removal of Tunneled Vascular Access Device from Trunk Subcutaneous Tissue and Fascia, Percutaneous Approach (ICD-10-PCS; 2018-08-10)
PROC: 5A1D70Z Performance of Urinary Filtration, Intermittent, Less than 6 Hours Per Day (ICD-10-PCS; 2018-08-16)
PROC: 0JH60XZ Insertion of Tunneled Vascular Access Device into Chest Subcutaneous Tissue and Fascia, Open Approach (ICD-10-PCS; 2018-08-16)
PROC: 02HV33Z Insertion of Infusion Device into Superior Vena Cava, Percutaneous Approach (ICD-10-PCS; 2018-08-16)
PROC: B548ZZA Ultrasonography of Superior Vena Cava, Guidance (ICD-10-PCS; 2018-08-16)
PROC: B5181ZA Fluoroscopy of Superior Vena Cava using Low Osmolar Contrast, Guidance (ICD-10-PCS; 2018-08-16)
PROC: 5A1D70Z Performance of Urinary Filtration, Intermittent, Less than 6 Hours Per Day (ICD-10-PCS; 2018-08-18)
PROC: 5A1D70Z Performance of Urinary Filtration, Intermittent, Less than 6 Hours Per Day (ICD-10-PCS; 2018-08-20)
PROC: 5A1D70Z Performance of Urinary Filtration, Intermittent, Less than 6 Hours Per Day (ICD-10-PCS; 2018-08-22)
DX: T80.211A Bloodstream infection due to central venous catheter, initial encounter (principal); I50.23 Acute on chronic systolic (congestive) heart failure; N18.6 End stage renal disease; A41.02 Sepsis due to Methicillin resistant Staphylococcus aureus; G93.40 Encephalopathy, unspecified; D68.9 Coagulation defect, unspecified; I13.2 Hypertensive heart and chronic kidney disease with heart failure and with stage 5 chronic kidney disease, or end stage renal disease; I42.9 Cardiomyopathy, unspecified; Z66 Do not resuscitate; Y83.8 Other surgical procedures as the cause of abnormal reaction of the patient, or of later complication, without mention of misadventure at the time of the procedure; Z51.5 Encounter for palliative care; Z79.01 Long term (current) use of anticoagulants; I27.20 Pulmonary hypertension, unspecified; J44.9 Chronic obstructive pulmonary disease, unspecified; F03.90 Unspecified dementia, unspecified severity, without behavioral disturbance, psychotic disturbance, mood disturbance, and anxiety; D64.9 Anemia, unspecified; M75.31 Calcific tendinitis of right shoulder; D69.6 Thrombocytopenia, unspecified; E03.9 Hypothyroidism, unspecified; E78.5 Hyperlipidemia, unspecified; I08.3 Combined rheumatic disorders of mitral, aortic and tricuspid valves; I25.10 Atherosclerotic heart disease of native coronary artery without angina pectoris; I48.2 Chronic atrial fibrillation; N40.0 Benign prostatic hyperplasia without lower urinary tract symptoms; Z88.0 Allergy status to penicillin; I25.2 Old myocardial infarction; Z95.5 Presence of coronary angioplasty implant and graft; Z95.810 Presence of automatic (implantable) cardiac defibrillator; Z99.2 Dependence on renal dialysis; Z79.899 Other long term (current) drug therapy; Z79.82 Long term (current) use of aspirin; Y92.89 Other specified places as the place of occurrence of the external cause
CPT/HCPCS: 36415; 36558; 36589; 36600; 71045; 73030; 76937; 77001; 80048; 80202; 82140; 82375; 82550; 82553; 82805; 83605; 84145; 84484; 85027; 87070; 87077; 92610; 93005; 93306; 96361; 96365; 97116; 97162; 97530; 99152; 99153; 99285; C1750; C1769; J1642; J1644; J1956; J3010; J3370; J3490; J7030; J7050; J7060